=== PATIENT | male | born 1950 | race Caucasian/White ===

== ENCOUNTER 2017-09-18 13:48 | Outpatient (CLI) | payer MEDICARE ==
[2017-09-18 14:04] LABS: Hematocrit 40.2 % (35.5-45.6); Hemoglobin 13.7 gm/dl (11.8-15.2); Mean Corpuscular HGB Conc 34 % (32-34); Mean Corpuscular Hemoglobin 32 pg (28-32); Mean Corpuscular Volume 93 fl (84-94); Platelet Count 293 K/mm3 (140-440); Red Blood Count 4.34 M/mm3 (3.65-5.03); Red Cell Distribution Width 13.8 % (13.2-15.2)
[2017-09-18 14:13] LABS: Creatinine,Urine 116.4 mg/dL (0.1-20.0); Protein/Creatinine Ratio,Urine 0.21
[2017-09-18 14:31] LABS: Albumin 4.1 g/dL (3.9-5); Calcium 9.1 mg/dL (8.4-10.2)
== END 2017-09-18 13:49 | disposition home or self-care (01) ==
LOC: LAB 13:48
PROVIDERS: ATTEND Internal Medicine Nephrology
DX: E87.5 Hyperkalemia (principal); R94.8 Abnormal results of function studies of other organs and systems
CPT/HCPCS: 36415; 80053; 82570; 84156; 85027

== ENCOUNTER 2018-01-02 11:29 | Outpatient (CLI) | payer MEDICARE ==
[2018-01-02 12:19] LABS: Albumin 4.2 g/dL (3.9-5); Calcium 9.2 mg/dL (8.4-10.2)
[2018-01-02 12:29] LABS: Creatinine,Urine 36.4 mg/dL (0.1-20.0)
== END 2018-01-02 11:30 | disposition home or self-care (01) ==
LOC: LAB 11:29
PROVIDERS: ATTEND Internal Medicine Nephrology
DX: R94.4 Abnormal results of kidney function studies (principal); E78.5 Hyperlipidemia, unspecified
CPT/HCPCS: 36415; 80048; 82040; 82565; 82570; 82575; 84100; 84156